=== PATIENT | female | born 1980 | race Caucasian/White ===

== ENCOUNTER 2022-10-13 11:28 | Emergency (ER) | payer OTHER, SELFPAY ==
[2022-10-13 11:39] VITALS: BP 164/102; PULSE 108; RESP 20; TEMP 36.4; O2SAT 100
[2022-10-13 11:40] VITALS: BP 164/102; PULSE 108; RESP 20; TEMP 36.4; O2SAT 100
--- NOTE | 2022-10-13 11:55 | ED.URI ---
HPI - URI/Sore Throat General Chief Complaint: Upper Respiratory Infection Stated Complaint: Rt Eye Irritation,Congestion,Bilateral Ear Time Seen by Provider: 10/13/22 11:44 Source: patient and RN notes reviewed Mode of arrival: ambulatory Limitations: no limitations History of Present Illness HPI Narrative: Patient presents today complaining of 5-6 day history of nasal congestion with sinus pressure, sore throat, bilateral ear pain right greater than left. She also reports a 2 day history of right eye redness with white drainage and matting in the mornings. She has tried Sudafed, Claritin D, and Mucinex without much relief. Denies history of asthma or COPD. She does have history of seasonal allergies for which she does not take daily medication. She currently rates her pain 5/10. Related Data Allergies Allergy/AdvReac Type Severity Reaction Status Date / Time fluticasone AdvReac Unknown Headache Verified 10/13/22 11:40 Review of Systems Review of Systems: CONSTITUTIONAL: Denies body aches, fever, chills, or sweats. EYES: Denies visual changes. + right eye redness and drainage ENT: Denies rhinorrhea. + sore throat, congestion, sinus pressure, bilateral ear pain CARDIOVASCULAR: Denies chest pain, palpitations, or edema. RESPIRATORY: Denies cough or dyspnea. GASTROINTESTINAL: Denies abdominal pain, nausea, vomiting, or diarrhea. GENITOURINARY: Denies dysuria or hematuria. SKIN: Denies rash, itching, or wounds. MUSCULOSKELETAL: Denies back pain, joint pain, or myalgia. NEUROLOGIC: Denies headache, numbness, tingling, or weakness. PSYCH: Denies depression or anxiety. PMFSH Comments At time of signature, I have reviewed and agree with nursing past medical, surgical, social and family history unless otherwise noted. Please see nursing chart for further information. There is no relevant family history pertinent to the presenting complaint Exam Narrative: GENERAL: Mildly ill-appearing, well-nourished, and in no acute distress. HEAD: Normocephalic, atraumatic. EYES: EOMI. No redness or drainage. Conjunctivae normal. ENT: Mucous membranes pink and moist. Nares congested with rhinorrhea. TMs normal bilaterally. Throat normal. Uvula midline. NECK: Normal AROM. Supple. No lymphadenopathy. CHEST: No respiratory distress. Clear to auscultation. HEART: Regular rate and rhythm. No murmur appreciated. Normal peripheral pulses. EXTREMITIES: Normal range of motion. No edema. SKIN: Warm, dry, no rash. Capillary refill normal. Normal skin turgor. NEURO: No focal deficits. Alert and oriented x3. Gait steady. PSYCH: Normal affect. No signs of depression or anxiety. Course Course Level of Care: Express Care Visit Vital Signs Vital signs: Vital Signs Temperature 97.6 F 10/13/22 11:39 Pulse Rate 108 H 10/13/22 11:39 Respiratory Rate 20 10/13/22 11:39 Blood Pressure 164/102 H 10/13/22 11:39 Pulse Oximetry 100 10/13/22 11:39 Oxygen Delivery Room Air 10/13/22 11:39 Temperature 97.6 F 10/13/22 11:40 Pulse Rate 108 H 10/13/22 11:40 Respiratory Rate 20 10/13/22 11:40 Blood Pressure 164/102 H 10/13/22 11:40 Pulse Oximetry 100 10/13/22 11:40 Oxygen Delivery Room Air 10/13/22 11:40 Reviewed. Pt has been instructed to follow up with her PCP regarding her elevated blood pressure today. MDM - URI/Sore Throat MDM Narrative Medical decision making narrative: Rapid strep positive. Prescription for amoxicillin sent to pharmacy. Will also treat patient for bacterial conjunctivitis with ciprofloxacin eyedrops. Anticipatory guidance given. Differential Diagnosis Differential diagnosis: Likely upper respiratory infection, otitis media, sinusitis, viral infection, pharyngitis and other (Strep throat) Lab Data Attestation: I reviewed the patient's lab results. Lab results narrative: Rapid strep positive Critical Care Time Critical Care Time Critical Care Time: No Discharge Plan Discha
== END 2022-10-13 12:11 | disposition home or self-care (01) ==
PROVIDERS: Emergency Provider Nurse Practitioner; PCP Nurse Practitioner Family
DX: J02.0 Streptococcal pharyngitis (principal); H10.31 Unspecified acute conjunctivitis, right eye; I10 Essential (primary) hypertension
CPT/HCPCS: 87880; 99213; G0463

== ENCOUNTER 2022-10-16 12:15 | Emergency (ER) | payer OTHER, SELFPAY ==
[2022-10-16 12:43] VITALS: BP 153/99; PULSE 90; RESP 20; TEMP 36.4; O2SAT 99
--- NOTE | 2022-10-16 13:05 | ED.URI ---
HPI - URI/Sore Throat General Chief Complaint: Upper Respiratory Infection Stated Complaint: Congestion,Cough Time Seen by Provider: 10/16/22 13:05 Source: patient and RN notes reviewed Mode of arrival: ambulatory Limitations: no limitations History of Present Illness HPI Narrative: 42-year-old female presented for complaint of sinus pressure and congestion worsening over the past week. Patient was seen 3 days ago at the urgent care and tested positive for strep and right bacterial conjunctivitis. She has since been taking amoxicillin and eye drop as directed. She reports no improvement in sinus congestion or right eye redness. Reports sinus pressure and pressure in neck and lower part of head. She has tried Sudafed, Claritin D, and Mucinex spray without relief. Throat pain is improved, denies difficulty swallowing, hoarse voice, sob, wheezing, n/v/d/f/c. MD elicited complaint: cough Related Data Allergies Allergy/AdvReac Type Severity Reaction Status Date / Time fluticasone AdvReac Intermediate Headache Verified 10/16/22 12:48 Review of Systems Review of Systems: CONSTITUTIONAL: Denies malaise, chills, sweats, fever EYES: Denies visual changes, redness, or discharge ENT: Reports rhinorrhea, congestion, sinus pain, otalgia CARDIOVASCULAR: Denies chest pain, palpitations, edema RESPIRATORY: Reports cough, post nasal drainage. Denies dyspnea GASTROINTESTINAL: Denies abdominal pain, nausea, vomiting, diarrhea SKIN: Denies rash or itching MUSCULOSKELETAL: Denies myalgia NEUROLOGIC: Reports headache PMFSH Past Medical History Medical History Hypertension Exam Narrative: GENERAL: mildly Ill-appearing, nontoxic no acute distress. HEAD: Normocephalic EYES: PERRLA, conjunctivae clear ENT: Mucous membranes moist. nasal congestion. TMs pearly rocha with dull light reflex bilaterally; no tragal tenderness. Oropharynx erythematous with tonsillar swelling 3+ bilaterally; without lesions or exudate, no drooling, no hoarseness, no trismus, uvula midline. No tripod positioning, muffled voice, soft palate or pharyngeal wall bulging NECK: Supple. No lymphadenopathy CHEST: Clear to auscultation, breath sounds equal. No wheezing, rhonchi, rales, or stridor. No respiratory distress, speaks in full sentences. HEART: Regular rate and rhythm. No murmur heard. SKIN: Warm, dry, no rash. NEURO: Alert and oriented x3. PSYCH: Normal mood and affect Course Course Emergency Course: Patient is aware of diagnosis, understands and agrees to treatment plan. Anticipatory guidance given. Patient agrees to follow-up as directed and is aware of reasons to seek care at the emergency department. Portions of this record may have been created with voice recognition software Level of Care: Express Care Visit Vital Signs Vital signs: Vital Signs Temperature 97.5 F L 10/16/22 12:43 Pulse Rate 90 10/16/22 12:43 Respiratory Rate 20 10/16/22 12:43 Blood Pressure 153/99 H 10/16/22 12:43 Pulse Oximetry 99 10/16/22 12:43 Oxygen Delivery Room Air 10/16/22 12:43 Temperature 97.5 F L 10/16/22 12:43 Pulse Rate 90 10/16/22 12:43 Respiratory Rate 20 10/16/22 12:43 Blood Pressure 153/99 H 10/16/22 12:43 Pulse Oximetry 99 10/16/22 12:43 Oxygen Delivery Room Air 10/16/22 12:43 reviewed MDM - URI/Sore Throat MDM Narrative Medical decision making narrative: Discussed physical exam findings. Will change eye drop since she has had no improvement, however we discussed the possibility of viral conjunctivitis. Advised supportive measures and signs/symptoms to go to the ER. She will try Fluticasone or afrin for congestion despite the occasional headache that it causes. Pt is appropriate for outpt treatment and f/u. She is scheduled with new pcp in 6 days. Differential Diagnosis Differential diagnosis: Likely upper respiratory infection, otitis media, sinusitis,
== END 2022-10-16 13:20 | disposition home or self-care (01) ==
PROVIDERS: Emergency Provider Nurse Practitioner Family; PCP Nurse Practitioner Family
DX: J06.9 Acute upper respiratory infection, unspecified (principal); I10 Essential (primary) hypertension
CPT/HCPCS: 99213; G0463